=== PATIENT | male | born 1945 | race Caucasian/White ===

== ENCOUNTER → 2016-08-03 | Outpatient (CLI) | payer MEDICARE ==
[~2016-08-03] MED LIST: ADVAIR 100-501 EAC1 IH; ADVAIR 250-501 EACH IH; ALBUTEROL MININEB NEB; ALBUTEROL20 ml INH; CHANTIX1 DOSE-PAC PO; COMBIVENT U/D3 M1 INH; FINASTERIDE5 MG PO; FLOMAX0.4 M1 PO; LASIX20 MG PO; LEVAQUIN750 M1 PO; LOPRESSOR PO; NEXIUM PO; OMEPRAZOLE40 M1 PO; PRAVASTATIN SOD40 MG PO; TENORMIN25 M1 PO; TRAMADOL HCL50 M1 PO; ZYRTEC10 M1 PO; ZYVOX PO
--- NOTE | ~2016-08-03 | MR93 ---
[facility] A Service [facility] RADIOLOGY TEXT RESULTS PATIENT: BRENDEN GUARDADO LOCATION: [facility] : 47 UNIT #: [id number] AGE: [address]: Nirmal Ellis MD SEX: M ORDER DR: [id number] [address] [address] [id number] O MR#: [id number] Acc #: [id number] NAME: BRENDEN GUARDADO : 1945 SEX: M STUDY DATE/TIME: 08/03/2016 18:02 UNIT: [facility] ROOM: STUDY DESCRIPTION: MR IAC Only WWo Contrast Attending Physician: Nirmal Ellis M.D. Ordering Physician: Nirmal Ellis M.D. Primary Care Physician: Diego Morgan M.D. MRI CENTER REPORT This report is preliminary unless electronic signature is present. EXAM MRI of the IAC with and without contrast, 08/03/2016. COMPARISONS CT head without contrast, 06/29/2010. 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 Increasing tinnitus, as well. FINDINGS Multisequence, multiplanar imaging of the internal auditory canals was obtained with and without contrast, using thin slices. Bilateral cerebellopontine angles, bilateral internal auditory canals, cochleae, vestibules, semicircular canals are within normal limits. No abnormal enhancement or mass is seen. Visualized bilateral 7th nerves do not demonstrate any obvious abnormality or asymmetry. Visualized adjacent brain is within normal limits. IMPRESSION Within normal limits. Dictated by... Tisha Gibson M.D. THIS IS AN ELECTRONICALLY VERIFIED REPORT Tisha Gibson M.D. at 08/07/2016 11:14 AM CPR/dustin [facility] A [facility] RADIOLOGY TEXT RESULTS PATIENT: BRENDEN GUARDADO LOCATION: [facility] : 47 UNIT #: [id number] AGE: [address]: Nirmal Ellis MD SEX: M ORDER DR: TD: 08/06/2016 12:46 JOB #: [id number] MRI CENTER REPORT Page 1 of 1
[2016-08-03 18:25] LABS: POC - CREATININE 0.76 mg/dL (0.64-1.27); POC - GFR >60.0 mL/min (>60)
== END | disposition home or self-care (01) ==
LOC: SMRI 17:36
PROVIDERS: Specialist
DX: H91.21 Sudden idiopathic hearing loss, right ear (principal); H93.11 Tinnitus, right ear
CPT/HCPCS: 70553; 82565; A9581